=== PATIENT | female | born 1990 | race Caucasian/White ===

== ENCOUNTER 2016-11-18 13:11 | Emergency (ER) | payer SELFPAY ==
[~2016-11-18] VITALS: Ht 160 cm; Wt 55.9 kg
[~2016-11-18 13:11] MED LIST: ADVAIR 250/501 DISK IH; ALLEGRA ALLERG180 MG PO; GLUMETZA1000 M1 PO; INDOCIN25 MG PO; MACROBID100 MG PO; NUVO RING; PROZAC20 MG PO; SINGULAIR10 MG PO; ZOFRAN4 MG PO
[2016-11-18] MEDS ORDERED: OXAYDO5 MG PO (16:42)
[2016-11-18 16:54] VITALS: BP 96/58
== END 2016-11-18 16:58 | disposition home or self-care (01) ==
LOC: EME 13:11
DX: M25.551 Pain in right hip (principal); Z98.890 Other specified postprocedural states; W11.XXXA Fall on and from ladder, initial encounter; Y92.009 Unspecified place in unspecified non-institutional (private) residence as the place of occurrence of the external cause
CPT/HCPCS: 73502; 99281; 99283; J3010

== ENCOUNTER 2017-04-23 08:41 | Emergency (ER) | payer SELFPAY ==
[~2017-04-23] VITALS: Ht 160 cm; Wt 59.4 kg
[~2017-04-23 08:41] MED LIST changes: +OXAYDO5 MG PO
[2017-04-23 09:06] LABS: ADD MIUA? YES; BILIRUBIN NEGATIVE; BLOOD SMALL; COLOR YELLOW ((YELLOW)); GLUCOSE (STRIP) NEGATIVE; KETONES NEGATIVE; LEUKOCYTES NEGATIVE; NITRITE NEGATIVE; PROTEIN (STRIP) NEGATIVE; SPECIFIC GRAVITY 1.021 (1.000-1.030); UROBILINOGEN 0.2 MG/DL (0.2-1.0)
[2017-04-23 09:10] LABS: BACTERIA RARE /HPF; EPITHELIAL CELLS RARE /HPF; MUCUS TRACE /LPF; RED BLOOD CELLS 0-5 /HPF (0-5); UCUL ADDED? NO; WHITE BLOOD CELLS 0-5 /HPF (0-5)
[2017-04-23 09:16] LABS: HEMATOCRIT 42.9 % (36.0-46.0); MCH 30.8 PG (29.0-34.0); MCHC 34.3 G/DL (30.0-36.0); MCV 89.7 FL (83-99); MEAN PLAT.VOLUME 8.8 uM^3 (9.5-12.4); PLATELET COUNT 296 K/uL (156-360); RBC DIS.WIDTH-CV 12.3 % (11.8-14.6); RBC DIS.WIDTH-SD 40.7 % (39-53); RED BLOOD COUNT 4.78 M/uL (3.80-5.20); WHITE BLOOD COUNT 6.8 K/uL (4.1-10.2)
[2017-04-23 09:24] LABS: CHLORIDE 107 mEq/L (99-109); SODIUM 139 mEq/L (136-147)
[2017-04-23 09:26] LABS: GLUCOSE 96 mg/dL (70-99)
[2017-04-23 09:27] LABS: ANION GAP 8 MEQ/L (2-14)
[2017-04-23 09:29] LABS: GFR ESTIMATE (CALCULATED) > 59 mL/min/
[2017-04-23 09:30] LABS: UREA NITROGEN (BUN) 10 mg/dL (9-23)
[2017-04-23 09:40] LABS: QUANTITATIVE HCG < 4.0 MIU/ML
[2017-04-23] MEDS ORDERED: ULTRAM50 MG PO (11:12)
[2017-04-23] MEDS ORDERED: FLEXERIL10 MG PO (11:14)
[2017-04-23 11:24] VITALS: BP 92/62
== END 2017-04-23 11:27 | disposition home or self-care (01) ==
LOC: EME 08:41
DX: R10.9 Unspecified abdominal pain (principal); K59.00 Constipation, unspecified; R11.2 Nausea with vomiting, unspecified; E11.9 Type 2 diabetes mellitus without complications; Z79.84 Long term (current) use of oral hypoglycemic drugs; Z87.442 Personal history of urinary calculi
CPT/HCPCS: 74176; 80048; 81003; 84702; 85027; 99281; 99285